=== PATIENT | female | born 1955 | race African-American/Black ===

== ENCOUNTER 2019-07-25 21:14 | Observation (INO) ==
[2019-07-25] MEDS ORDERED: MAGNESIUM SULF RIDER 2 GM in PREMIX 1 EACH IV ONE (23:21)
[2019-07-25 23:38] LABS: Basophils % 0.2 % (0.0-0.8); Hematocrit 38.9 VOL% (35.7-47.0); Hemoglobin 12.8 GM/DL (12.0-16.0); Immature Granulocytes % 0.5 %; Immature Granulocytes Absolute 0.06 #; Lymphocytes # 0.8 10*3/uL (1.4-4.0); Lymphocytes % 5.9 % (21.3-54.2); Mean Corpuscular HGB Conc 32.9 GM/DL (32-36); Mean Corpuscular Volume 94.6 FL (87-102); Monocytes % 1.3 % (1.7-12.7); Neutrophils % 92.1 % (38.7-73.9); Platelet Count 229 T/CUMM (130-400); Red Blood Count 4.11 MC/CUMM (3.8-5.5); Red Cell Distribution Width 13.7 % (9.3-17.3); White Blood Count 12.6 T/CUMM (4-12)
[2019-07-26 00:03] LABS: Albumin 3.9 G/DL (3.4-5.0); Bilirubin,Total 0.4 MG/DL (0.2-1.0); Calcium 10.5 MG/DL (8.5-10.1); Osmolality,Calculated 289.8 MOS/KG (273-304); Thyroid Stimulating Hormone 0.245 uIU/ml (0.358-3.74); Total Protein 8.2 G/DL (6.4-8.3)
[2019-07-26] MEDS: PANTOPRAZOLE 40 MG TABLET PO SCH ×2 (00:10→11:56)
[2019-07-26 00:17] LABS: Band Neutrophils 2 % (0-10); Lymphocytes 5 % (20-55); Segmented Neutrophils 92 % (50-85)
[2019-07-26 00:18] LABS: Platelet Estimate Normal; Total Cells Counted 100
[2019-07-26] MEDS: ALBUTEROL/IPRATROPIUM 3 ML NEB RESP TX SCH ×2 (01:24→07:46)
[2019-07-26 03:51] LABS: Risk Ratio 1.63; VLDL CHOLESTEROL 8.2 MG/DL
[2019-07-26] MEDS ORDERED: POTASSIUM CHLORIDE 20 MEQ TABLET PO ONE (08:11)
[2019-07-26 08:19] LABS: Basophils % 0.1 % (0.0-0.8); Hematocrit 38.2 VOL% (35.7-47.0); Hemoglobin 12.3 GM/DL (12.0-16.0); Immature Granulocytes % 0.4 %; Immature Granulocytes Absolute 0.04 #; Lymphocytes # 1.1 10*3/uL (1.4-4.0); Mean Corpuscular HGB Conc 32.2 GM/DL (32-36); Mean Corpuscular Volume 95.3 FL (87-102); Mean Platelet Volume 9.5 FL (9.6-12.0); Monocytes % 3.8 % (1.7-12.7); Neutrophils % 83.7 % (38.7-73.9); Platelet Count 231 T/CUMM (130-400); Red Blood Count 4.01 MC/CUMM (3.8-5.5); Red Cell Distribution Width 13.5 % (9.3-17.3)
[2019-07-26 08:56] LABS: Calcium 9.4 MG/DL (8.5-10.1); Osmolality,Calculated 283.3 MOS/KG (273-304)
[2019-07-26] MEDS ORDERED: BUDESONIDE/FORMOTEROL 160-4.5 INHALER 6 GM INH SCH (09:00)
[2019-07-26] MEDS ORDERED: ASPIRIN CHEW 81 MG TABLET PO SCH (09:00)
[2019-07-26 09:17] VITALS: BP 117/60
== END 2019-07-26 10:47 | disposition home or self-care (01) ==
LOC: N.2E
PROVIDERS: ADMIT Hospitalist; ATTEND Hospitalist

== ENCOUNTER 2020-01-14 10:43 | Observation (INO) ==
[2020-01-14] MEDS ORDERED: ALBUTEROL/IPRATROPIUM 3 ML NEB RESP TX STA (11:10)
[2020-01-14] MEDS ORDERED: ASPIRIN 325 MG TABLET PO STA (11:10)
[2020-01-14 11:22] LABS: Basophils % 0.2 % (0.0-0.8); Eosinophils # 0.2 10*3/uL (0.0-0.87); Eosinophils % 1.8 % (0.00-10.9); Hematocrit 41.7 VOL% (35.7-47.0); Hemoglobin 13.2 GM/DL (12.0-16.0); Immature Granulocytes % 0.4 %; Immature Granulocytes Absolute 0.04 #; Lymphocytes # 1.2 10*3/uL (1.4-4.0); Lymphocytes % 13.6 % (21.3-54.2); Mean Corpuscular HGB Conc 31.7 GM/DL (32-36); Mean Corpuscular Volume 97.7 FL (87-102); Mean Platelet Volume 9.3 FL (9.6-12.0); Monocytes % 5.4 % (1.7-12.7); Neutrophils % 78.6 % (38.7-73.9); Platelet Count 212 T/CUMM (130-400); Red Blood Count 4.27 MC/CUMM (3.8-5.5); White Blood Count 9.1 T/CUMM (4-12)
[2020-01-14 12:57] LABS: Platelet Estimate Normal
[2020-01-14 12:58] LABS: Anisocytosis Slight
[2020-01-14] MEDS ORDERED: ONDANSETRON 4 MG/2 ML VIAL IV PRN (13:58)
[2020-01-14] MEDS ORDERED: POTASSIUM CHLORIDE 20 MEQ TABLET PO PRN (13:58)
[2020-01-14] MEDS ORDERED: MAGNESIUM SULF RIDER 2 GM in PREMIX 1 EACH IV PRN (13:58)
[2020-01-14] MEDS ORDERED: NICOTINE 21 MG/24 HR PATCH TRANSDERM PRN (13:58)
[2020-01-14] MEDS ORDERED: NITROGLYCERIN SL 0.4 MG TABLET SL PRN (13:58)
[2020-01-14 14:25] LABS: Alanine Aminotransferase 29 U/L (13-56); Albumin 3.8 G/DL (3.4-5.0); Alkaline Phosphatase 84 U/L (45-117); Aspartate Amino Transferase 27 U/L (0-37); Bilirubin,Total < 0.39 MG/DL (0.2-1.0); Blood Urea Nitrogen 18 MG/DL (7-18); Calcium 9.8 MG/DL (8.5-10.1); Estimated Glom Filtration Rate 78 ML/MIN; Glucose 124 MG/DL (74-106); Total Protein 7.8 G/DL (6.4-8.3)
[2020-01-14] MEDS ORDERED: ENOXAPARIN 60 MG/0.6 ML SYRINGE SUBCUT SCH (16:00)
[2020-01-14] MEDS ORDERED: KETOROLAC 30 MG/1 ML VIAL IV ONE (16:07)
[2020-01-14] MEDS: SODIUM CHLORIDE 0.45% 1,000 ML IV SCH (18:51)
[2020-01-14] MEDS ORDERED: ATORVASTATIN 20 MG TABLET PO SCH (21:00)
[2020-01-14] MEDS: ACETAMINOPHEN 325 MG TABLET PO SCH (21:02)
[2020-01-14] MEDS: POTASSIUM CHLORIDE 20 MEQ TABLET PO PRN ×2 (21:02→21:07)
[2020-01-14] MEDS: GABAPENTIN 100 MG CAPSULE PO SCH (21:03)
[2020-01-15] MEDS: SODIUM CHLORIDE 0.45% 1,000 ML IV SCH (04:26)
[2020-01-15 06:00] LABS: Basophils % 0.2 % (0.0-0.8); Eosinophils # 0.4 10*3/uL (0.0-0.87); Eosinophils % 4.3 % (0.00-10.9); Hematocrit 37.6 VOL% (35.7-47.0); Hemoglobin 11.9 GM/DL (12.0-16.0); Immature Granulocytes % 0.4 %; Immature Granulocytes Absolute 0.04 #; Lymphocytes # 3.5 10*3/uL (1.4-4.0); Lymphocytes % 36.5 % (21.3-54.2); Mean Corpuscular HGB Conc 31.6 GM/DL (32-36); Mean Corpuscular Volume 98.7 FL (87-102); Mean Platelet Volume 9.6 FL (9.6-12.0); Monocytes % 8.3 % (1.7-12.7); Neutrophils % 50.3 % (38.7-73.9); Platelet Count 198 T/CUMM (130-400); Red Blood Count 3.81 MC/CUMM (3.8-5.5); White Blood Count 9.4 T/CUMM (4-12)
[2020-01-15 06:42] LABS: Alanine Aminotransferase 21 U/L (13-56); Albumin 3.1 G/DL (3.4-5.0); Alkaline Phosphatase 75 U/L (45-117); Aspartate Amino Transferase 13 U/L (0-37); Bilirubin,Total < 0.39 MG/DL (0.2-1.0); Blood Urea Nitrogen 18 MG/DL (7-18); Calcium 9.5 MG/DL (8.5-10.1); Estimated Glom Filtration Rate 78 ML/MIN; Glucose 75 MG/DL (74-106); Osmolality,Calculated 270.1 MOS/KG (273-304); Thyroid Stimulating Hormone 0.716 uIU/ml (0.358-3.74); Total Protein 6.7 G/DL (6.4-8.3)
[2020-01-15] MEDS: BUDESONIDE/FORMOTEROL 80-4.5 INHALER 6.9 GM INH SCH ×2 (07:47→09:57)
[2020-01-15 08:07] VITALS: BP 106/55
[2020-01-15] MEDS ORDERED: LISINOPRIL/HCTZ 10-12.5 MG TABLET PO SCH (09:00)
[2020-01-15] MEDS ORDERED: PANTOPRAZOLE 40 MG TABLET PO SCH (09:00)
[2020-01-15] MEDS ORDERED: THEOPHYLLINE ER 300 MG TABLET PO SCH (09:00)
[2020-01-15] MEDS ORDERED: ASPIRIN EC 81 MG TABLET PO SCH (09:00)
[2020-01-15] MEDS: ACETAMINOPHEN 325 MG TABLET PO SCH (09:57)
[2020-01-15] MEDS: GABAPENTIN 100 MG CAPSULE PO SCH (10:01)
== END 2020-01-15 11:30 | disposition home or self-care (01) ==
LOC: EDUNIT# → EDBD → N.EDINP 10:43 → N.ED 10:43 → SUATTDRO 13:58 → N.TELES 14:45
PROVIDERS: ADMIT Family Medicine; ATTEND Internal Medicine